=== PATIENT | male | born 1990 | race Hispanic/Latino ===

== ENCOUNTER 2024-04-14 18:21 | Emergency (ER) | payer OTHER ==
[~2024-04-14] VITALS: Ht 170.2 cm; Wt 82.0 kg
[2024-04-14 18:26] VITALS: BP 139/89
[2024-04-14 18:30] VITALS: BP 130/92
[2024-04-14] MEDS ORDERED: IBUPROFEN 600 MG/TAB PO ONE (18:30)
[2024-04-14 18:45] VITALS: BP 125/85
[2024-04-14 19:00] VITALS: BP 122/78
[2024-04-14] MEDS ORDERED: PENICILLIN G BENZATHINE 1.2 MU/2 ML SYR IM ONE (19:05)
[2024-04-14 19:09] VITALS: BP 122/78
== END 2024-04-14 19:18 | disposition home or self-care (01) | DRG 153 ==
LOC: ED 18:21
DX: J02.0 Streptococcal pharyngitis (principal); Z72.0 Tobacco use; Z20.822 Contact with and (suspected) exposure to COVID-19
CPT/HCPCS: J0561